=== PATIENT | male | born 1930 | race Hispanic/Latino ===

== ENCOUNTER 2018-08-05 15:58 | Inpatient (IN) | payer MEDICARE ==
[~2018-08-05] VITALS: Ht 162.6 cm; Wt 73.2 kg
[~2018-08-05 15:58] MED LIST: ASPIR-LOW81 MG PO; CENTRUM SILVER1 EAC3 PO; GABAPENTIN400 MG PO; GLIPIZIDE5 MG PO; IRON TAB PO; METOPROLOL TART25 MG PO; PANTOPRAZOLE SO40 MG PO; PLAVIX75 MG PO; SIMETHICONE80 MG PO; SIMVASTATIN40 MG PO; ZESTRIL20 MG PO
[2018-08-05 17:40] LABS: BASOPHILS % 0.4 % (0.0-1.0); EOSINOPHILS % 0.4 % (0.0-6.0); HEMATOCRIT 30.5 % (38.2-49.6); HEMOGLOBIN 9.9 g/dL (14.0-18.0); LYMPHOCYTES # (AUTO) 1.1 (1.0-3.2); LYMPHOCYTES % 15.7 % (18.0-39.1); MEAN CORPUSCULAR HEMOGLOBIN 27.3 pg (28-32); MEAN CORPUSCULAR HGB CONC 32.5 g/dL (31-35); MONOCYTES # (AUTO) 0.4 (0.2-0.8); MONOCYTES % 5.8 % (4.4-11.3); NEUTROPHILS # (AUTO) 5.2 (2.1-6.9); NEUTROPHILS % 77.3 % (38.7-80.0); PLATELET COUNT 306 x10e3/uL (140-360); RED BLOOD COUNT 3.63 x10e6/uL (4.3-5.7); RED CELL DISTRIBUTION WIDTH 15.3 % (11.7-14.4)
[2018-08-05 18:01] LABS: ALBUMIN 3.5 g/dL (3.5-5.0); ALBUMIN/GLOBULIN RATIO 0.9 (0.8-2.0); ANION GAP 17.7 mmol/L (8-16); CALCIUM 9.2 mg/dL (8.4-10.2); CREATININE, SERUM 1.38 mg/dL (0.72-1.25); POTASSIUM 4.7 mmol/L (3.5-5.1)
[2018-08-05 19:16] LABS: INR 0.94; PROTHROMBIN TIME 13.4 seconds (11.9-14.5)
[2018-08-05 19:17] LABS: PARTIAL THROMBOPLASTIN TIME 38.2 seconds (23.8-35.5)
[2018-08-05] MEDS ORDERED: DIATRIZOATE MEGL/DIATRIZOA SOD 30 ML BTL PO ONE (19:30)
--- NOTE | 2018-08-05 19:50 | Diagnostic Imaging Report ---
EXAMINATION: CHEST SINGLE (PORTABLE) INDICATION: ^ERMD ORDER ^[id number] ^1840 ^Y COMPARISON: None FINDINGS: AP view TUBES and LINES: None. LUNGS: Lungs are well inflated. Lungs are clear. There is no evidence of pneumonia or pulmonary edema. PLEURA: No pleural effusion or pneumothorax. HEART AND MEDIASTINUM: The cardiomediastinal silhouette is unremarkable. Median sternotomy wires. BONES AND SOFT TISSUES: No acute osseous lesion. Soft tissues are unremarkable. UPPER ABDOMEN: No free air under the diaphragm. IMPRESSION: No acute thoracic abnormality. Signed by: Dr. David Otero MD on 08/05/2018 7:47 PM
[2018-08-05] MEDS ORDERED: SODIUM CHLORIDE 0.9% 1000ML 1,000 ML IV SCH ×2 (20:30→22:38)
--- NOTE | 2018-08-05 21:59 | Diagnostic Imaging Report ---
EXAM: CT Abdomen and Pelvis WITH contrast INDICATION: Abdominal pain. Weakness COMPARISON: None. TECHNIQUE: Abdomen and pelvis were scanned utilizing a multidetector helical scanner from the lung base to the pubic symphysis after administration of IV contrast. Coronal and sagittal reformations were obtained. Routine protocol was performed. Scan was performed when during portal venous phase. IV CONTRAST: 100 mL of Isovue-370 ORAL CONTRAST: Gastroview COMPLICATIONS: None RADIATION DOSE: Total DLP: 265.9 mGy*cm Estimated effective dose: (DLP x 0.015 x size factor) mSv Dose modulation, iterative reconstruction, and/or weight based adjustment of the mA/kV was utilized to reduce the radiation dose to as low as reasonably achievable. FINDINGS: LINES and TUBES: None. LOWER THORAX: Partially visualized aortic valve prosthesis. Right lower lobe 3 mm calcified granuloma. HEPATOBILIARY: No focal intrahepatic lesions. Subcapsular fluid attenuating 0.9 x 2.1 cm lesion along segment (sagittal image 45) which indents the liver parenchyma. No biliary ductal dilation. GALLBLADDER: There are stones in the gallbladder. No wall thickening. SPLEEN: No splenomegaly. Punctate calcified granuloma. PANCREAS: No ductal dilatation. 0.4 cm cystic lesion in the pancreatic body (coronal image 39). ADRENALS: No adrenal nodules KIDNEYS/URETERS: Kidneys enhance symmetrically. No hydronephrosis. No cystic or solid mass lesions. No stones. GI TRACT: Multiple dilated loops of distal small bowel with masslike area of heterogeneity at the ileocecal valve) axial image 48) measuring 4.2 x 4.3 cm. The proximal small bowel loops of the jejunum and duodenum are relatively collapsed. The mass also appears to involve the base of the appendix which appears fluid filled and distended measuring up to 2.7 cm in diameter (coronal image 37). PELVIC ORGANS/BLADDER: Unremarkable. LYMPH NODES: Scattered nonspecific retroperitoneal and pelvic subcentimeter nodes. VESSELS: Unremarkable. PERITONEUM / RETROPERITONEUM: Diffuse omental caking (for example on series 2 image 35) measuring approximately 3 cm in anterior posterior dimension. Mild ascites. BONES: Median sternotomy wires. Severe degenerative changes of the lumbar spine. SOFT TISSUES: Unremarkable. IMPRESSION: Mass involving the cecum extending to the ileocecal valve and base of the appendix causing mild distal small bowel obstruction and distension of the appendix. Diffuse omental caking and mild likely malignant ascites. Subcapsular collection indenting the right hepatic lobe may represent a mucinous implant. Signed by: DR. Mitch Douglas MD on 08/05/2018 9:56 PM
[2018-08-05] MEDS ORDERED: IOPAMIDOL 370 MG/ML 200 ML INFUS..BTL INJ ONE (22:00)
[2018-08-05] MEDS ORDERED: SODIUM CHLORIDE 0.9% 50ML 50 ML ONE (22:00)
[2018-08-05] MEDS ORDERED: MORPHINE SULFATE 2 MG/ML SYR IV PRN (22:45)
[2018-08-05] MEDS ORDERED: DEXTROSE 50% SYRINGE 50 ML IV PRN (22:45)
--- OUTSIDE RECORDS SUMMARY | 2018-08-05 23:41 | XMS REPORT ---
Author Author [facility] Address Unknown Phone Unavailable Care Team Providers Care Dry Box Operator Name Role Phone Belkys MARCOS Unavailable Unavailable Problems This patient has no known problems. Allergies, Adverse Reactions, Alerts This patient has no known allergies or adverse reactions. Medications This patient has no known medications. Results Test Description Test Time Test Comments Text Results Atomic Results Result Comments CT ABDOMEN/PELVIS W 2018-08-05 21:38:00 [place] [address] Patient Name: YESENIA ADHIKARI MR #: [id number] : 1930 Age/Sex: 88/M Req #: [id number] Adm Physician: Ordered by: ESPERANZA PALMA NP Report #: [id number] Location: ER Room/Bed: Procedure: [id number] CT/CT ABDOMEN/PELVIS W Exam Date: 08/05/18 Exam Time: 2117 REPORT STATUS: Signed EXAM: CT Abdomen and Pelvis WITH contrast INDICATI ON: Abdominal pain. Weakness COMPARISON: None. TECHNIQUE: Abdomen and pelvis were scanned utilizing a multidetector helical scanner from the lung base to the pubic symphysis after administration of IV contrast. Coronal and sagittal reformations were obtained. Routine protocol was performed. Scan was performed when during portal venous phase. IV CONTRAST: 100 mL of Isovue-370 ORAL CONTRAST: Gastroview COMPLICATIONS: None RADIATION DOSE: Total DLP: 265.9 mGy*cm Estimated effective dose: (DLP x 0.015 x size factor) mSv Dose modulation, iterative reconstruction, and/or weight based adjustment of the mA/kV was utilized to reduce the radiation dose to as low as reasonably achievable. FINDINGS: LINES and TUBES: None. LOWER THORAX: Partially visualized aortic valve prosthesis. Right lower lobe 3 mm calcified granuloma. HEPATOBILIARY: No focal intrahepatic lesions. Subcapsular fluid attenuating 0.9 x 2.1 cm lesion along segment (sagittal image 45) which indents the liver parenchyma. No biliary ductal dilation. GALLBLADDER: There are stones in the gallbladder. No wall thickening. SPLEEN: No splenomegaly. Punctate calcified granuloma. PANCREAS: No ductal dilatation. 0.4 cm cystic lesion in the pancreatic body (coronal image 39). ADRENALS: No adrenal nodules KIDNEYS/URETERS: Kidneys enhance symmetrically. No hydronephrosis. No cystic or solid mass lesions. No stones. GI TRACT: Multiple dilated loops of distal small bowel with masslike area of heterogeneity at the ileocecal valve) axial image 48) measuring 4.2 x 4.3 cm. The proximal small bowel loops of the jejunum and duodenum are relatively collapsed. The mass also appears to involve the base of the appendix which appears fluid filled and distended measuring up to 2.7 cm in diameter (coronal image 37). PELVIC ORGANS/BLADDER: Unremarkable. LYMPH NODES: Scattered nonspecific retroperitoneal and pelvic subcentimeter nodes. VESSELS: Unremarkable. PERITONEUM / RETROPERITONEUM: Diffuse omental caking (for example on series 2 image 35) measuring approximately 3 cm in anterior posterior dimension. Mild ascites. BONES: Median sternotomy wires. Severe degenerative changes of the lumbar spine. SOFT TISSUES: Unremarkable. IMPRESSION: Mass involving the cecum extending to the ileocecal valve and base of the appendix causing mild distal small bowel obstruction and distension of the appendix. Diffuse omental caking and mild likely malignant ascites. Subcapsular collection indenting the right hepatic lobe may represent a mucinous implant. Signed by: DR. Mitch Still MD on 08/05/2018 9:56 PM Dictated By: MITCH STILL MD 55 Transcribed By: JORGE on 08/05/182155 COPY TO: ESPERANZA PALMA NP CHEST SINGLE (PORTABLE) 2018-08-05 19:46:00 [facility] [address] [place] [address] Patient Name: YESENIA ADHIKARI MR #: [id number] : 1930 Age/Sex: 88/M Req #: [id number] Adm Physician: Ordered by: ESPERANZA PALMA NP Report #: [id number] Location: ER Room/Bed: Procedure: [id number] DX/CHEST SINGLE (PORTABLE) Exam Date: 08/05/18 Exam Time: 0 REPORT STATUS: Signed EXAMINATION: CHEST SINGLE (PORTABLE) INDIC ATION: ERMD ORDER [id number] 1840 Y COMPARISON: None FINDINGS: AP view TUBES and LINES: None. LUNGS: Lungs are well inflated. Lungs are clear. There is no evidence of pneumonia or pulmonary edema. PLEURA: No pleural effusion or pneumothorax. HEART AND MEDIASTINUM: The cardiomediastinal silhouette is unremarkable. Median sternotomy wires. BONES AND SOFT TISSUES: No acute osseous lesion. Soft tissues are unremarkable. UPPER ABDOMEN: No free air under the diaphragm. IMPRESSION: No acute thoracic abnormality. Signed by: Dr. David Dong MD on 08/05/2018 7:47 PM Dictated By: DAVID DONG MD 46 Transcribed By: JORGE on 08/05/181946 COPY TO: ESPERANZA PALMA NP
[2018-08-06] VITALS (9 sets, daily range): BP systolic 102–162; BP diastolic 53–77
[2018-08-06] MEDS: PIPER-TAZ 3.375 GM / NS 50ML IV SCH ×4 (00:04→22:00)
--- NOTE | 2018-08-06 00:40 | NUR ---
Pt received from ER via stretcher alert and oriented x3. Pt denies any distress/discomfort/pain. NG tube to left nare, clamped. Awaiting on Xray for confirmation of NG tube placement. Bowel sound hyperactive in all quadrants. Pt requiring moderate assistance to ambulate. Assisted pt to use the restroom. Pt with hesitation but able to void at this time with encouragement. Reminded pt to be NPO at this time. Pt verbalizes understanding. Family at bedside. Call light within reach. Will continue to monitor.
--- NOTE | 2018-08-06 02:00 | NUR ---
Placement of NG tube can not be verified with xray. 2 Nurses unable to verify placement with aspiration of gastric content nor auscultation of air injection. Pt with occasional coughs. Removed NG tube at this time.
--- NOTE | 2018-08-06 02:03 | Diagnostic Imaging Report ---
EXAM: ABDOMEN-1VIEW (KUB), DATE: 08/06/2018 11:43 PM INDICATION: NG tube placement COMPARISON: CT abdomen and pelvis 08/05/2017 FINDINGS: Evaluation limited by motion. LINES/TUBES: No definitive NG tube is visualized. Tube is visualized projecting over the left lower thorax, but of uncertain etiology. BOWEL PATTERN: Mildly dilated loops of small bowel in keeping with distal small bowel obstruction from the cecal mass. SOFT TISSUES: No abnormal calcifications. No mass effect. LUNG BASES: Grossly clear. BONES: No acute findings. IMPRESSION: No definitive NG tube is visualized. A tube is visualized projecting over the left lower thorax of uncertain etiology. Recommend clinical correlation and chest x-ray. Signed by: DR. Mitch Douglas MD on 08/06/2018 2:00 AM
--- NOTE | 2018-08-06 03:00 | NUR ---
Multiple attempts at placing the NG tube unsuccessful by multiple RNs including this nurse and ICU nurse. Pt states he "does not want it".
--- NOTE | 2018-08-06 03:20 | NUR ---
Paged and spoke with Dr. Montoya regarding multiple unsuccessful attempts to place a ng tube on the patient. Leave the NG tube out per Dr. Montoya. Pt denies any nausea/vomiting. NO distress noted.
--- NOTE | 2018-08-06 05:20 | NUR ---
Urine sample sent to lab
[2018-08-06] MEDS ORDERED: LEVOTHYROXINE50 MCG PO (06:18)
[2018-08-06] MEDS ORDERED: ATORVASTATIN CA20 MG PO (06:18)
[2018-08-06] MEDS ORDERED: FLOMAX0.4 MG PO (06:18)
[2018-08-06 06:40] LABS: BASOPHILS % 0.4 % (0.0-1.0); EOSINOPHILS % 0.3 % (0.0-6.0); HEMATOCRIT 25.3 % (38.2-49.6); HEMOGLOBIN 8.2 g/dL (14.0-18.0); LYMPHOCYTES # (AUTO) 0.7 (1.0-3.2); LYMPHOCYTES % 8.9 % (18.0-39.1); MEAN CORPUSCULAR HEMOGLOBIN 27.3 pg (28-32); MEAN CORPUSCULAR HGB CONC 32.4 g/dL (31-35); MEAN CORPUSCULAR VOLUME 84.3 fL (81-99); MONOCYTES # (AUTO) 0.4 (0.2-0.8); MONOCYTES % 5.6 % (4.4-11.3); NEUTROPHILS # (AUTO) 6.6 (2.1-6.9); NEUTROPHILS % 84.3 % (38.7-80.0); PLATELET COUNT 236 x10e3/uL (140-360); RED CELL DISTRIBUTION WIDTH 15.4 % (11.7-14.4)
[2018-08-06 07:06] LABS: ALBUMIN 2.9 g/dL (3.5-5.0); ANION GAP 17.9 mmol/L (8-16); CALCIUM 8.3 mg/dL (8.4-10.2); CREATININE, SERUM 1.21 mg/dL (0.72-1.25); POTASSIUM 3.9 mmol/L (3.5-5.1)
[2018-08-06 07:17] LABS: COLOR,URINE YELLOW (YELLOW)
[2018-08-06 07:18] LABS: CLARITY,URINE CLEAR (CLEAR); LEUKOCYTE ESTERASE ,URINE NEGATIVE (NEGATIVE); NITRITE,URINE NEGATIVE (NEGATIVE); PROTEIN,URINE DIPSTICK NEGATIVE (NEGATIVE)
[2018-08-06 07:19] LABS: BILIRUBIN,URINE NEGATIVE (NEGATIVE); KETONES,URINE 1+ (NEGATIVE); URINE UROBILINOGEN 0.2 mg/dL (0.2 - 1)
[2018-08-06 07:23] LABS: BACTERIA,URINE RARE /HPF; WBC,URINE (MAN) 0-5 /HPF (0-5)
[2018-08-06 07:24] LABS: EPITHELIAL CELLS,URINE MODERATE /LPF; TRANSITIONAL EPI CELLS,URINE FEW
[2018-08-06] MEDS ORDERED: INSULIN REGULAR, HUMAN 100 UNIT/1 ML 3ML VIAL SQ SCH (07:30)
[2018-08-06] MEDS: LACTATED RINGER'S 1,000 ML IV SCH (12:57)
--- NOTE | 2018-08-06 13:40 | NUR ---
Nutrition Intervention Note RD Recommendation(s) for Physician: Recommend TPN if unable to initiate a Po diet within 5 days Plan of Care: RD following, monitoring for tolerance and adequacy Nutrition reason for involvement: Nutrition Risk Trigger - MST RD Assessment Initial encounter with patient. Pt with C/O of a terrible appetite and a 12 pound wt loss since last weighed on 08/01/2018. Pt denies any N, V or D. Pt has not had a BM recently. Pt refused NGT placement Principal Problems/Diagnoses: Bowel obstruction Colonic mass PMH: Metastatic cancer IVF: NS@100ml/hr GI: No BM Skin:intact Labs: (08/06/2018) Lab results review Meds: (08/06/2018) MAR reviewed Malnutrition Evaluation (08/06/2018) The patient meets criteria for MODERATE protein-calorie malnutrition. Energy intake: <75% of estimated energy requirements for >7 days Weight loss: >2% in 1week (Acute) Fat loss: unable to evaluate Muscle loss: unable to evaluate Diet Education Needs Assessment: Diet education indicated, but patient not appropriate for education at this time. Ht:65 Wt:138lbs BMI:23kg/m2 IBW:lbs Estimated Nutritional Needs: 1568 - 1881calories/day 25-30 kcal/kg/BW 62-75g protein/day 1-1.2g pro/kg/ BW Nutrition Prescription (Diet Order):NPO Food Allergies: no known food allergies Diet Adequacy: Not meeting calorie needs, Not meeting protein needs Tolerance: Pt is NPO Nutrition Care Level: moderate Nutrition Diagnosis:Altered GI function, related to colonic mass as evidenced by bowel obstruction Goal:Patient will meet 75-100% of estimated needs by follow up Progress: Not Progressing Interventions: Recommend nutrition support if unable to initiate Po intake within 5 days. Monitoring/Evaluation: I/os, Wt, lab results Pietro Garcia RD, LD, CNSC
--- NOTE | 2018-08-06 16:24 | Consultation ---
DATE OF CONSULTATION: August 06, 2018 CHIEF COMPLAINT: Nausea and pain. HISTORY OF PRESENT ILLNESS: The patient is an 88-year-old male with chief complaint of progressive abdominal pain and nausea with intolerance of oral intake since . The patient complained of constipation with very loose infrequent stool without blood. He has lost a lot of weight. The patient denies vomiting. PAST MEDICAL HISTORY: Positive for coronary artery disease, hyperlipidemia, diabetes, hypertension. 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 ALLERGIES: THE PATIENT HAS NO DRUGS ALLERGY. SOCIAL HISTORY: He denies smoking or alcohol abuse. REVIEW OF SYSTEMS: No chest pain or shortness of breath. PHYSICAL EXAMINATION VITAL SIGNS: Stable. He is afebrile. GENERAL: He is awake, alert, in mild discomfort. HEENT: Sclerae nonicteric. NECK: Supple. LUNGS: Clear. HEART: Regular rate and rhythm. ABDOMEN: Soft. There is some fullness and guarding in the right lower quadrant without rebound. EXTREMITIES: Without cyanosis or edema. LABORATORY DATA: White cell count 7, hemoglobin of 8, platelet count of 236. Creatinine of 1.2. Liver function test within normal limits. CT of the abdomen showed cecal mass with mild bowel obstruction. Omental kicking is also noted with ascites. ASSESSMENT: Mass in the cecum with bowel obstruction, suspicious for malignant etiology. PLAN: Patient would need exploratory laparotomy and probable right colectomy planned for Wednesday. Job#: [id number] YASMIN
[2018-08-06] MEDS: INSULIN LISPRO 100 UNIT/1 ML 3ML VIAL SQ SCH ×2 (16:30→21:00)
--- NOTE | 2018-08-06 21:30 | NUR ---
Assisted pt to the restroom. Pt with slight hesitancy but able to void with encouragement. Assisted pt back to back. Call light within reach. Will continue to monitor.
[2018-08-07] VITALS (7 sets, daily range): BP systolic 98–121; BP diastolic 42–61
[2018-08-07] MEDS: LACTATED RINGER'S 1,000 ML IV SCH ×3 (00:57→17:45)
[2018-08-07] MEDS: PIPER-TAZ 3.375 GM / NS 50ML IV SCH (06:05)
[2018-08-07] MEDS: INSULIN LISPRO 100 UNIT/1 ML 3ML VIAL SQ SCH ×4 (07:30→21:00)
--- NOTE | 2018-08-07 09:30 | NUR ---
assessment complete no distress noted, updated on poc voiced understanding, denies pain at this time, ivf infusing to l ac 20g no ss of infiltration noted, no other co voiced call light in reach will continue to monitor
[2018-08-07] MEDS: LEVOFLOXACIN 500MG/D5W 100ML 100 ML IV SCH (12:16)
[2018-08-07] MEDS: METRONIDAZOLE 500MG/NS 100ML 100 ML IV SCH ×2 (13:56→22:08)
--- NOTE | 2018-08-07 15:29 | Consultation ---
DATE OF CONSULTATION: August 07, 2018 REFERRING PHYSICIAN: Dr. Yair Riddle. REASON FOR CONSULTATION: Perioperative evaluation for cardiovascular issues. HISTORY OF PRESENT ILLNESS: Mr. 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 He denies any exertional symptoms proceeding in his hospitalization including absence of exertional chest discomfort or dyspnea. He denies any evidence of syncope or lightheadedness. His think he is in normal sinus rhythm with nonspecific repolarization abnormalities. His echocardiogram reveals preserved biventricular systolic function. Normal functioning bioprosthetic aortic valve and a normal regional wall motion. REVIEW OF SYSTEMS: A 12-system review negative except for as noted above and abdominal discomfort . PAST MEDICAL HISTORY: As per HPI. Significant for CAD, aortic valve disorder status post replacement and dyslipidemia. FAMILY HISTORY: Noncontributory. SOCIAL HISTORY: No active smoking, alcohol or drug. PHYSICAL EXAMINATION VITAL SIGNS: Temperature 97.1, heart rate in the 50s to 60s, blood pressure 105/55, respiratory rate 18, and O2 sat 99%. BMI is 23.4. GENERAL: In no acute distress. Alert, active. NECK: No JVD. CHEST: Preferred carotid sounds from heart. CARDIOVASCULAR: Regular rate and rhythm. Normal S1 and S2. No S3 or S4. Systolic ejection murmurs 2/6 radiating to carotids, best heard in the right upper sternal border. No S3 and no S4. ABDOMEN: Distended. No rebound or guarding. EXTREMITIES: No edema. Warm distal extremities. MEDICATIONS: Cardiovascular medication reviewed preliminarily on Zofran, p.r.n. morphine, p.r.n. insulin, and IV metoprolol 2.5 mg every 12 hours with holding parameters systolic blood pressure less than 105 or heart rate is less than 60. LAB WORK: Reviewed. Sodium 131, potassium 3.9, chloride 102, bicarbonate 15, BUN 26, creatinine 1.2, glucose 97. White blood cells 7.8, hemoglobin 8.2, platelets 236. AST , alk phos 47, INR 0.9. ASSESSMENT: 1. Bowel obstruction in the setting of suspected cancer, we will plan for urgent lab tomorrow. 2. Coronary artery disease status post remote stent through RCA proximally in 2007, at the circumflex in 2011. 3. Aortic stents with aortic valve replacement with tissue, put in 1 mm valve in 2012 with normal function on echo. 4. Preserved left ventricular systolic function on echocardiogram. RECOMMENDATIONS 1. Moderate risk for a gross cardiovascular outcomes with noncardiac surgery given her history of procedure. Continue perioperative beta-blockers there as possible with holding parameters for heart rate and blood pressure. 2. Once able to tolerate p.o., resume aspirin. 3. We will follow closely with you. Job#: [id number] SUDARSHAN
--- NOTE | 2018-08-07 21:33 | NUR ---
pt to receive heparin 5000 units SQ, paged Dr. Montoya to verify order, ok to give
[2018-08-07] MEDS: METOPROLOL TARTRATE INJ 1 MG/ML VIAL IV SCH (22:06)
[2018-08-07] MEDS: HEPARIN SOD (PORCINE) 5,000 UNIT/ML VIAL SC SCH (22:07)
[2018-08-08] VITALS (23 sets, daily range): BP systolic 91–139; BP diastolic 47–71
[2018-08-08] MEDS: LACTATED RINGER'S 1,000 ML IV SCH ×3 (05:47→23:45)
[2018-08-08] MEDS: METRONIDAZOLE 500MG/NS 100ML 100 ML IV SCH ×3 (05:48→21:40)
[2018-08-08 06:13] LABS: BASOPHILS % 0.3 % (0.0-1.0); EOSINOPHILS # (AUTO) 0.1 (0.0-0.4); EOSINOPHILS % 1.6 % (0.0-6.0); HEMATOCRIT 22.7 % (38.2-49.6); HEMOGLOBIN 7.3 g/dL (14.0-18.0); LYMPHOCYTES # (AUTO) 0.9 (1.0-3.2); LYMPHOCYTES % 15.1 % (18.0-39.1); MEAN CORPUSCULAR HEMOGLOBIN 27.3 pg (28-32); MEAN CORPUSCULAR HGB CONC 32.2 g/dL (31-35); MONOCYTES # (AUTO) 0.5 (0.2-0.8); NEUTROPHILS # (AUTO) 4.6 (2.1-6.9); NEUTROPHILS % 74.7 % (38.7-80.0); PLATELET COUNT 202 x10e3/uL (140-360); RED BLOOD COUNT 2.67 x10e6/uL (4.3-5.7); RED CELL DISTRIBUTION WIDTH 15.9 % (11.7-14.4)
--- NOTE | 2018-08-08 06:20 | NUR ---
ASSESSMENT: Spiritual distress Pt requested printing press operator visit/prayer. Pt's daughter at bedside. Pt states his a few years ago and his daughters help. Pt concerned about help after returning home. Intervention: Provided empathic listening. Facilitated illness review. Facilitated identification of resources. Provided prayer and information on how to reach printing press operator, if needed. Outcome: Pt and daughter expressed appreciation for visit. RIYA ELLIS Structural Steel Shop Supervisor Spiritual Care Department O: [phone] Pager: [phone] ([phone] + number calling from)
[2018-08-08 06:37] LABS: % IRON SATURATION 9 % (15-50); ANION GAP 14.8 mmol/L (8-16); BLOOD UREA NITROGEN 11 mg/dL (7-26); BUN/CREATININE RATIO 11 (6-25); CALCIUM 8.2 mg/dL (8.4-10.2); CARBON DIOXIDE 18 mmol/L (22-29); CHLORIDE 106 mmol/L (98-107); CREATININE, SERUM 0.97 mg/dL (0.72-1.25); EST GLOMERULAR FILTRATION RATE > 60 ML/MIN (60-); GLUCOSE 73 mg/dL (74-118); IRON 19 ug/dL (65-175); POTASSIUM 3.8 mmol/L (3.5-5.1); SODIUM 135 mmol/L (136-145); TOTAL IRON BINDING CAPACITY 209 ug/dL (261-478); TRANSFERRIN 149 mg/dL (174-364)
--- NOTE | 2018-08-08 07:15 | NUR ---
Patient left for procedure to OR. No signs of distress noted.
[2018-08-08] MEDS ORDERED: HEPARIN SOD/SOD CHLORIDE 1,000 ML ONE (07:18)
[2018-08-08] MEDS ORDERED: BUPIVACAINE 0.5%/EPI 30 ML SDV INJ ONE (07:27)
[2018-08-08] MEDS: INSULIN LISPRO 100 UNIT/1 ML 3ML VIAL SQ SCH ×4 (07:30→21:00)
--- NOTE | 2018-08-08 07:43 | NUR ---
Received patient. Walking rounds complete. Patient resting in bed, no signs of distress. Bed in lowest position, side rails up x2, wheels locked, call light in reach.
[2018-08-08] MEDS: METOPROLOL TARTRATE INJ 1 MG/ML VIAL IV SCH ×2 (08:26→21:40)
[2018-08-08] MEDS: HEPARIN SOD (PORCINE) 5,000 UNIT/ML VIAL SC SCH (08:27)
[2018-08-08] MEDS ORDERED: FENTANYL CITRATE/PF 100MCG/2 ML INJ ONE ×2 (10:28→12:14)
--- NOTE | 2018-08-08 11:06 | NUR ---
Report given to Divya in ICU. Patient transferred from surgery.
[2018-08-08] MEDS: MORPHINE SULFATE INJ 4 MG/ML INJ IV PRN (12:02)
[2018-08-08] MEDS: LEVOFLOXACIN 500MG/D5W 100ML 100 ML IV SCH (12:03)
[2018-08-08] MEDS: ONDANSETRON HCL INJ 2 MG/ML VIAL IV PRN (12:03)
--- NOTE | 2018-08-08 13:36 | Operative Report ---
DATE OF PROCEDURE: August 08, 2018 PREOPERATIVE DIAGNOSIS: Obstructing right colonic neoplasm. POSTOPERATIVE DIAGNOSIS: Obstructing right colonic neoplasm and carcinomatosis. OPERATIVE PROCEDURES 1. Diagnostic laparoscopy. 2. Open diverting loop ileostomy. FNP: None. ANESTHESIA: General endotracheal. INDICATIONS: An 88-year-old male with a 3-month history of progressive abdominal distention, nausea and intermittent vomiting with CT scan showing an obstructing lesion in the cecal area with intestinal obstruction. Patient had consented for diagnostic, possible open, right colectomy with all attendant risks discussed. PROCEDURE FINDINGS: Obstructing lesion in the right colon at the level of the cecum and the mid-transverse colon with thickening of the omentum and intraperitoneal implants on the abdominal wall as well as on the mesentery of the small bowel and large bowel. Malignant ascites, 500 mL. DESCRIPTION OF PROCEDURE: The patient was brought to the OR intubated. Abdomen was prepped with alcohol and draped in a sterile fashion. A supraumbilical incision was made and a 5-mm port inserted. Insufflation then began. Under direct vision, other ports were placed in the mid-epigastric. Laparoscopic examination revealed evidence of carcinomatosis with tumor implants in the lining of the peritoneal cavity as well as the surface of the bowel and mesentery. There was evidence of obstruction at the cecum level with dilation of the ileum and the appendix. Omental thickening of the omentum was noted. At this point, a decision was made to open the abdomen from the xiphoid down to the umbilicus, going through the linea alba, entering the peritoneal cavity. Malignant peritoneal fluid was suctioned out, 500 mL removed. Due to extensive tumor load and obstruction far distal in the colon, the decision was made to perform diverting loop ileostomy. A right paraumbilical ostomy site was chosen through the mid point of the rectus muscle. A circular piece of skin and subcutaneous tissue were removed in that area, and the fascia was opened in a cruciate fashion. The rectus muscle was split along its fibers, and the posterior fascia and peritoneum were opened transversely. A loop of ileum approximately 35 cm from the obstructing tumor was then exteriorized with orientation to ensure normal egress of intestinal content. The loop was exteriorized without any tension. We then closed the peritoneal cavity, approximating the fascia with running #0 PDS and #0 Vicryl. Skin was closed with sarah. We then proceeded to mature the ileostomy by everting the bowel wall to the skin with interrupted 3-0 Vicryl stitch with the enterotomy made approximately two-thirds of the way up the inferior aspect of the ostomy to ensure a well-constructed ileostomy. Appliance was inserted. Patient was then extubated and transported in guarded condition to the recovery room. Estimated blood loss was 20 mL. Job#: [id number]
--- NOTE | 2018-08-08 13:58 | Diagnostic Imaging Report ---
Examination: Single AP view of the chest. COMPARISON: Portable chest 08/05/2018 INDICATION: Central line placement IMPRESSION: 1. Lines and Tubes: Interval placement of left-sided subclavian approach central line, with distal tip projecting in the proximal SVC. 2. Hypoinflated lungs. Minimal bibasilar atelectasis. Focal crescentic lucency in the lateral left apex may represent a small pneumothorax. 3. Cardiomediastinal silhouette is normal. Central pulmonary venous crowding due to low lung volumes. 4. No acute bony abnormalities. 5. Findings given to Shala Evans Aug 08, 2018 at 1355 h Signed by: Dr. Stephen Lizarraga M.D. on 08/08/2018 1:54 PM
[2018-08-08] MEDS: IRON SUCROSE 100 MG in SODIUM CHLORIDE 0.9% 100 ML 100 ML IV SCH (14:48)
[2018-08-08] MEDS ORDERED: HYDROMORPHONE 1MG/1ML INJ IV PRN (15:00)
[2018-08-08] MEDS ORDERED: HYDROMORPHONE 2MG/ML 2 MG/ML ML ONE (15:05)
[2018-08-08] MEDS: HYDROMORPHONE 2MG/ML 2 MG/ML ML IV PRN ×2 (15:15→21:10)
[2018-08-08] MEDS: METOCLOPRAMIDE HCL 10 MG/2ML VIAL IV PRN (15:15)
[2018-08-08] MEDS: FAMOTIDINE 20 MG/2 ML VIAL IV SCH (17:42)
[2018-08-08] MEDS ORDERED: ROCURONIUM BROMIDE 10 MG/ML 5ML VIAL ONE (17:47)
[2018-08-08] MEDS ORDERED: CEFOXITIN SOD 1 GM VIAL ONE (17:47)
[2018-08-08] MEDS ORDERED: GLYCOPYRROLATE INJ 1MG/ 5 ML SYR ONE (17:47)
[2018-08-08] MEDS ORDERED: LIDOCAINE HCL 2% LOCAL INJ 5 ML SDV VIAL INJ ONE (17:47)
[2018-08-08] MEDS ORDERED: ONDANSETRON HCL INJ 2 MG/ML VIAL ONE (17:47)
[2018-08-08] MEDS ORDERED: DEXAMETHASONE SOD PHOS INJ 4 MG/ML VIAL ONE (17:47)
[2018-08-08] MEDS ORDERED: NEOSTIGMINE 5 MG/5ML SYR ONE (17:47)
[2018-08-08] MEDS ORDERED: HYDRALAZINE HCL 20 MG/ML VIAL ONE (17:47)
[2018-08-08] MEDS ORDERED: ESMOLOL HCL 100MG/10ML 10 MG/ML VIAL ONE (17:47)
[2018-08-08] MEDS ORDERED: SEVOFLURANE INHAL SOLN 250 ML PEN BTL ONE (17:47)
--- NOTE | 2018-08-08 20:26 | Progress Note ---
DATE: August 08, 2018 CARDIOLOGY PROGRESS NOTE SUBJECTIVE: Patient is not in room, undergoing surgery today. Vital signs and labs as well as medications reviewed. Will attempt to visit with patient later today. Please call with any issues. Job#: [id number]
[2018-08-09] VITALS (31 sets, daily range): BP systolic 92–139; BP diastolic 40–95
[2018-08-09] MEDS: LACTATED RINGER'S 1,000 ML IV SCH ×2 (05:10→19:00)
[2018-08-09] MEDS: METRONIDAZOLE 500MG/NS 100ML 100 ML IV SCH ×3 (05:10→23:30)
[2018-08-09] MEDS: HYDROMORPHONE 2MG/ML 2 MG/ML ML IV PRN (05:30)
[2018-08-09 05:34] LABS: BASOPHILS % 0.3 % (0.0-1.0); HEMATOCRIT 36.6 % (38.2-49.6); LYMPHOCYTES # (AUTO) 0.6 (1.0-3.2); LYMPHOCYTES % 4.6 % (18.0-39.1); MEAN CORPUSCULAR HEMOGLOBIN 28.1 pg (28-32); MEAN CORPUSCULAR HGB CONC 33.6 g/dL (31-35); MEAN CORPUSCULAR VOLUME 83.8 fL (81-99); MONOCYTES # (AUTO) 0.5 (0.2-0.8); MONOCYTES % 4.2 % (4.4-11.3); NEUTROPHILS # (AUTO) 11.4 (2.1-6.9); NEUTROPHILS % 90.4 % (38.7-80.0); PLATELET COUNT 254 x10e3/uL (140-360); RED BLOOD COUNT 4.37 x10e6/uL (4.3-5.7); RED CELL DISTRIBUTION WIDTH 15.7 % (11.7-14.4)
[2018-08-09 05:36] LABS: HEMOGLOBIN 12.3 g/dL (14.0-18.0)
[2018-08-09 05:57] LABS: ANION GAP 23.3 mmol/L (8-16); BLOOD UREA NITROGEN 10 mg/dL (7-26); BUN/CREATININE RATIO 9 (6-25); CALCIUM 8.1 mg/dL (8.4-10.2); CHLORIDE 109 mmol/L (98-107); CREATININE, SERUM 1.13 mg/dL (0.72-1.25); EST GLOMERULAR FILTRATION RATE > 60 ML/MIN (60-); GLUCOSE 141 mg/dL (74-118); POTASSIUM 4.3 mmol/L (3.5-5.1); SODIUM 137 mmol/L (136-145)
[2018-08-09 06:00] LABS: CARBON DIOXIDE 9 mmol/L (22-29)
[2018-08-09] MEDS: INSULIN LISPRO 100 UNIT/1 ML 3ML VIAL SQ SCH ×4 (07:30→21:35)
[2018-08-09] MEDS: METOPROLOL TARTRATE INJ 1 MG/ML VIAL IV SCH ×2 (09:00→21:35)
[2018-08-09] MEDS: FAMOTIDINE 20 MG/2 ML VIAL IV SCH ×2 (09:30→16:59)
--- NOTE | 2018-08-09 11:02 | Diagnostic Imaging Report ---
EXAMINATION: CHEST SINGLE (PORTABLE) INDICATION: Follow-up pneumothorax. COMPARISON: Chest radiograph 08/08/2018. FINDINGS: TUBES and LINES: Left-sided central line terminates in the expected location of the left distal brachiocephalic vein. LUNGS: Low lung volumes which decreases sensitivity and specificity for pathology. There is increasing patchy opacity in the right mid and lower lung. Mild patchy left basilar opacity. No evidence of pulmonary edema. PLEURA: Interval resolution of lucency in the left lateral apex. No definite residual pneumothorax. There is a skinfold overlying the left lower lung. HEART AND MEDIASTINUM: The cardiomediastinal silhouette is unchanged. BONES AND SOFT TISSUES: No acute osseous lesion. Soft tissues are unremarkable. UPPER ABDOMEN: No free air under the diaphragm. IMPRESSION: Previously noted left apical lucency is no longer present. No definite pneumothorax. Lower lung volumes compared to the prior study. Increasing opacities in the right mid and lower lung zones, likely atelectasis. Pneumonia is possible in the appropriate clinical context. Signed by: Dr. Cristal Wilson MD on 08/09/2018 10:59 AM
--- NOTE | 2018-08-09 11:04 | Diagnostic Imaging Report ---
EXAM: Abdomen 1 View INDICATION: ^RECENT ILEOSTOMY ^[id number] ^[id number] COMPARISON: 08/06/2018 FINDINGS: Mild gaseous distention of bowel loops, probably postsurgical ileus. Contrast is seen within proximal ascending colon. No definite evidence of pneumoperitoneum. Mild levoscoliosis of lumbar spine with multilevel advanced degenerative changes. Surgical sarah are seen overlying the midline. IMPRESSION: 1. Mild gaseous distention of bowel loops, likely postsurgical ileus. No overt signs of obstruction. Signed by: Dr. David Otero MD on 08/09/2018 11:01 AM
[2018-08-09] MEDS ORDERED: LACTATED RINGER'S 1,000 ML IV ONE (11:30)
[2018-08-09] MEDS: LEVOFLOXACIN 500MG/D5W 100ML 100 ML IV SCH (11:30)
[2018-08-09] MEDS: IPRATROPIUM BROMIDE 0.02% 2.5 ML NEB NEB SCH ×3 (11:30→15:00)
[2018-08-09] MEDS: IRON SUCROSE 100 MG in SODIUM CHLORIDE 0.9% 100 ML 100 ML IV SCH (13:04)
--- NOTE | 2018-08-09 13:52 | NUR ---
PT AND FAMILY SIGNED CHOICE FOR [facility], FILED IN CHART WITH COPY GIVEN TO FAMILY AT BEDSIDE. WAITING ON ORDER FOR DISCHARGE, PT ACCEPTED TO HOSPICE.
--- NOTE | 2018-08-09 14:31 | NUR ---
Nutrition Intervention Note RD Recommendation(s) for Physician: -Advance to GI soft diet as medically appropriate -Consider Ensure Clear w/ meals as requested by pts family -RD is sign off from care -08/09 (comfort care) The patient meets criteria for MODERATE protein-calorie malnutrition. Plan of Care: RD following, monitoring for tolerance and adequacy Nutrition reason for involvement: Follow up, RN consult- no reason stated RD Assessment 08/09 Chart reviewed. Pt was discussed during rounds. Confirmed hospice care. Pt is s/p open ex-lap, colectomy and ileostomy on 08/08. Visited pt in the room. Pt reports feeling well after surgery. No complains of nausea or vomiting. Pt has some missing teeth; will order mechanical soft diet. Pt denies any swallowing difficulty. RD is signed off from care as pt will be on hospice care. Re-consult if status of care changed. 08/06 - Initial encounter with patient. Pt with C/O of a terrible appetite and a 12 pound wt loss since last weighed on 08/01/2018. Pt denies any N, V or D. Pt has not had a BM recently. Pt refused NGT placement Principal Problems/Diagnoses: Bowel obstruction Colonic mass PMH: Metastatic cancer GI: colostomy bag present Skin: intact Labs: (08/09/2018) Glucose 141 H, Ca 8.1 L (08/06/2018) Lab results review Meds: insulin, iron sucrose, IVF, pepcid, lactated ringer, reglan, zofran Malnutrition Evaluation (08/06/2018) The patient meets criteria for MODERATE protein-calorie malnutrition. Energy intake: <75% of estimated energy requirements for >7 days Weight loss: >2% in 1week (Acute) Fat loss: unable to evaluate Muscle loss: unable to evaluate Diet Education Needs Assessment: Diet education not indicated. Ht:65 Wt:138lbs BMI:23kg/m2 IBW: 136lbs Estimated Nutritional Needs: 1568 - 1881calories/day 25-30 kcal/kg/BW 62-75g protein/day 1-1.2g pro/kg/ BW Nutrition Prescription (Diet Order): clear liquid Food Allergies: no known food allergies Diet Adequacy: Not meeting calorie needs, Not meeting protein needs Tolerance: tolerating Nutrition Care Level: low Nutrition Diagnosis: Altered GI function related to colonic mass as evidenced by bowel obstruction. Goal: Patient will meet 75-100% of estimated needs by follow up Progress: Some progress Interventions: Regular diet Monitoring/Evaluation: Total protein, total energy intake, diet, labs, weight change Anna Marie Alarcon MS, RD, LD
[2018-08-09] MEDS ORDERED: IPRATROPIUM BROMIDE 0.02% 2.5 ML NEB NEB SCH (15:00)
[2018-08-09 15:17] LABS: BASOPHILS % 0.2 % (0.0-1.0); HEMOGLOBIN 10.9 g/dL (14.0-18.0); LYMPHOCYTES # (AUTO) 0.5 (1.0-3.2); LYMPHOCYTES % 3.8 % (18.0-39.1); MEAN CORPUSCULAR HEMOGLOBIN 27.9 pg (28-32); MEAN CORPUSCULAR VOLUME 84.6 fL (81-99); MONOCYTES # (AUTO) 0.4 (0.2-0.8); MONOCYTES % 3.1 % (4.4-11.3); NEUTROPHILS # (AUTO) 12.1 (2.1-6.9); NEUTROPHILS % 92.3 % (38.7-80.0); PLATELET COUNT 226 x10e3/uL (140-360)
[2018-08-09 15:33] LABS: ANION GAP 17.1 mmol/L (8-16); CREATININE, SERUM 1.23 mg/dL (0.72-1.25); POTASSIUM 4.1 mmol/L (3.5-5.1)
--- NOTE | 2018-08-09 15:49 | NUR ---
CASE MANAGEMENT INITIAL ASSESSMENT Chronic Disease Epidemiologist to bedside to discuss plan of care with patient/family. CM/SW role and care transitions discussed. Anticipated discharge plan discussed along with duration of care. CM/SW discussed patients right to make decisions in care. CM/SW work hours given. Patient lives:IN HIS OWN HOME WITH GROWN DTR TESSY MCKEON Admit/Transfer: ER POA/Emergency contact: TESSY MCKEON DTR [phone] Current/Previous Home Health: NONE PCP/Follow-up Care: MAYA ALBERTS Current/Previous DME: ALBERTO Other Services: NONE Employment Status: RETIRED Areas of Concerns: ASKING FOR HOSPICE Referral Needs: REFERRED TO [facility] Education Needs: NONE IMM/ATKINSON given and signed (if applicable): IMM 08/09 Goal for discharge:TO DISCHARGE HOME WITH HOSPICE WHEN MEDICALLY STABLE CM/SW left business card at the bedside with contact information. Name and number was also written on the patients whiteboard.
--- NOTE | 2018-08-09 15:55 | NUR ---
CM SPOKE WITH DR DELEON TO NOTIFY HIM THAT [facility] IS READY WHENEVER PT IS DISCHARGED HOME DR DELEON STATES PT NEEDS TO BE MORE STABLE POST OP BEFORE DISCHARGE IMM SIGNED AND ON CHART COPY TO PT A FIB WITH RVR TODAY (RATE 177) WHILE AMBULATING
--- NOTE | 2018-08-09 16:25 | NUR ---
hospice at bedside this morning and ready to admit patient upon discharge home. Hospice company [facility]. pt and family not ready for discharge at this time.
--- NOTE | 2018-08-09 16:26 | NUR ---
patient hr elevated with arrythemias noted. Dr. Moya at bedside. EKG's obtained. per jac Martínez. new orders received. will start amidarone gtt per protocol and instructed not to continue when 24hr's completed and do not start pt on po amiodarone. bp stable. pt has no complaints. hr 90s to 130's this morning. pt ambulated in ICU dexter with max hr 170's non- sustained. pt denied symptoms. pt ambulated well with walker. gait stable. sat in chair after for an hour. started clear liquid diet and is tolerating diet. no distended noted to abdomen, denies nausea and vomiting. c/o "need to burp but cant" feeling. gave reglan with good effect. per Dr. Moya order, 1 L of LR given over two hours. hr decreased to 90's, bp stable and UOP since fluid bolus given =200ml out. new order to give another 500ml LR and continue with current hourly rate. daughter at bedside. pt has good family support. patient is in good spirits today. denies pain from surgical incision. left cvc (one lumen) clotted and received order for cathflo from Dr. Moya. am and 1500 lab results called to Dr. Moya and Dr. Kaiser. replacing electrolytes as needed. order received. will recheck am labs.
[2018-08-09] MEDS ORDERED: AMIODARONE HCL 900 MG in DEXTROSE 5 % 500ML BOTTLE 482 ML IV SCH (16:30)
[2018-08-09] MEDS ORDERED: AMIODARONE HCL 150 MG/100 ML BAG IV ONE (16:30)
[2018-08-09] MEDS ORDERED: ALTEPLASE RECOMBINANT 2 MG/2 ML VIAL IV PRN (16:30)
[2018-08-09] MEDS ORDERED: MAGNESIUM SULFATE 2GM/50ML 50 ML IV ONE ×3 (16:30→21:32)
[2018-08-09] MEDS ORDERED: LACTATED RINGER'S 500 ML IV ONE ×2 (17:00→18:00)
[2018-08-09] MEDS: CHLORASEPTIC SPRAY 177 ML BTL MM PRN (20:00)
[2018-08-10] VITALS (17 sets, daily range): BP systolic 96–138; BP diastolic 55–92
--- NOTE | 2018-08-10 00:49 | Progress Note ---
DATE: August 09, 2018 CARDIOLOGY PROGRESS NOTE SUBJECTIVE: Status post surgery. On telemetry, atrial flutter and some atrial fibrillation strips with episode of rapid ventricular response. Denies any chest pain or shortness of breath. OBJECTIVE VITAL SIGNS: Temperature 97.5, heart rate 136, blood pressure 110/55, respiratory rate 28, and O2 sat in the low 90s. GENERAL: No acute distress, alert. NECK: No JVD. CHEST: Decreased breath sounds in bilateral bases. CARDIOVASCULAR: Regular rate and rhythm. Normal S1 and S2. Systolic ejection murmur 2/6. No S3, no S4. ABDOMEN: Distended. Diverting colostomy in place and dressing is in place. EXTREMITIES: No edema. Warm distal extremities. CARDIOVASCULAR MEDICATIONS 1. Amiodarone drip per protocol. 2. Metoprolol tartrate 2.5 mg every 12 hours to be up-titrated as tolerated by blood pressure for rate control. STUDIES: Sodium 135, potassium 4.1, chloride 109, bicarbonate 13, BUN 11, and creatinine 1.23. White blood cells 13, hemoglobin 10.9, and platelets 226,000. INR 0.9. PT 13.4, PTT 38.2. AST 10, ALT 8, total bilirubin 0.5, and alkaline phosphatase 47. ASSESSMENT 1. Remains n.p.o. status post exploratory laparotomy with peritoneal spill reported, status post diverting colostomy. 2. Paroxysmal atrial fibrillation/atrial flutter. 3. Metabolic acidosis. 4. Anemia. 5. History of aortic valve replacement. 6. History of coronary artery disease with previous multiple coronary stents to left anterior descending, circumflex, and right coronary artery, each more than 1 year prior. RECOMMENDATIONS 1. Continue current cardiovascular medications. 2. Consider switching fluids to half NS given the metabolic acidosis. 3. Once advancing p.o. diet, we will resume aspirin. 4. Overall guarded prognosis. Job#: [id number]
[2018-08-10] MEDS: LACTATED RINGER'S 1,000 ML IV SCH ×2 (03:30→19:00)
[2018-08-10] MEDS: CHLORASEPTIC SPRAY 177 ML BTL MM PRN (04:30)
[2018-08-10 04:49] LABS: BASOPHILS % 0.2 % (0.0-1.0); EOSINOPHILS # (AUTO) 0.1 (0.0-0.4); HEMATOCRIT 31.2 % (38.2-49.6); HEMOGLOBIN 10.4 g/dL (14.0-18.0); LYMPHOCYTES # (AUTO) 0.8 (1.0-3.2); LYMPHOCYTES % 6.5 % (18.0-39.1); MEAN CORPUSCULAR HEMOGLOBIN 27.5 pg (28-32); MEAN CORPUSCULAR HGB CONC 33.3 g/dL (31-35); MEAN CORPUSCULAR VOLUME 82.5 fL (81-99); MONOCYTES # (AUTO) 0.6 (0.2-0.8); MONOCYTES % 4.4 % (4.4-11.3); NEUTROPHILS % 87.2 % (38.7-80.0); PLATELET COUNT 230 x10e3/uL (140-360); RED BLOOD COUNT 3.78 x10e6/uL (4.3-5.7); RED CELL DISTRIBUTION WIDTH 15.8 % (11.7-14.4)
[2018-08-10 05:01] LABS: INR 1.27
[2018-08-10 05:02] LABS: PARTIAL THROMBOPLASTIN TIME 47.3 seconds (23.8-35.5)
[2018-08-10] MEDS: METRONIDAZOLE 500MG/NS 100ML 100 ML IV SCH ×3 (05:05→22:55)
[2018-08-10 05:11] LABS: ANION GAP 13.4 mmol/L (8-16); BLOOD UREA NITROGEN 8 mg/dL (7-26); BUN/CREATININE RATIO 8 (6-25); CALCIUM 8.2 mg/dL (8.4-10.2); CARBON DIOXIDE 17 mmol/L (22-29); CHLORIDE 105 mmol/L (98-107); CREATININE, SERUM 0.95 mg/dL (0.72-1.25); EST GLOMERULAR FILTRATION RATE > 60 ML/MIN (60-); GLUCOSE 141 mg/dL (74-118); POTASSIUM 3.4 mmol/L (3.5-5.1); SODIUM 132 mmol/L (136-145)
[2018-08-10 05:43] LABS: MAGNESIUM 1.9 MG/DL (1.3-2.1)
[2018-08-10 06:04] LABS: THYROID STIMULATING HORMONE 4.444 uIU/mL (0.350-4.940)
[2018-08-10] MEDS: IPRATROPIUM BROMIDE 0.02% 2.5 ML NEB NEB SCH ×3 (07:25→20:30)
[2018-08-10] MEDS: INSULIN LISPRO 100 UNIT/1 ML 3ML VIAL SQ SCH ×4 (07:30→21:00)
[2018-08-10] MEDS ORDERED: POTASSIUM CHLORIDE 20MEQ/100ML 300 ML IV ONE (08:00)
[2018-08-10] MEDS: METOPROLOL TARTRATE INJ 1 MG/ML VIAL IV SCH ×2 (09:00→21:00)
[2018-08-10] MEDS: HYDROMORPHONE 2MG/ML 2 MG/ML ML IV PRN ×2 (09:07→14:29)
[2018-08-10] MEDS: FAMOTIDINE 20 MG/2 ML VIAL IV SCH ×2 (09:40→17:30)
[2018-08-10] MEDS: METOCLOPRAMIDE HCL 10 MG/2ML VIAL IV PRN (09:43)
[2018-08-10] MEDS: ONDANSETRON HCL INJ 2 MG/ML VIAL IV PRN ×2 (09:43→23:55)
[2018-08-10] MEDS: LEVOFLOXACIN 500MG/D5W 100ML 100 ML IV SCH (12:00)
[2018-08-10] MEDS: IRON SUCROSE 100 MG in SODIUM CHLORIDE 0.9% 100 ML 100 ML IV SCH (13:31)
--- NOTE | 2018-08-10 14:26 | NUR ---
verified orders with Dr. Moya, continue telemetry monitoring for patient.
--- NOTE | 2018-08-10 15:56 | NUR ---
patient oob to chair twice today. patient also ambulated from his room to IMU/OBS nursing station. used walker for ambulation. pt tolerated ambulation well. only reported fatigue after ambulation. hr 90's today .
--- NOTE | 2018-08-10 18:22 | NUR ---
notified Dr. Moya of [facility] for today. pt stable and in good spirits. no distress at this time. Plan is to monitor strict I&O's
--- NOTE | 2018-08-10 19:30 | NUR ---
Received patient calm in bed, hemodynamically stable on lactated ringers at 100mls/hr. Awaiting transfer out of the unit
--- NOTE | 2018-08-10 21:30 | NUR ---
Report called in to [facility], patient transferred to room 202, vitals stable, patient informed daughter of the transfer
--- NOTE | 2018-08-10 21:40 | NUR ---
PATIENT RECEIVED FROM ICU. PATIENT IS RESTING IN BED, AAOX2. RESP EVEN AND UNLABORED. MID ABDOMINAL DRESSING NOTED, DRY AND INTACT. TELE IN PLACE. IV FLUID INFUSING. CALL LIGHT WITHIN REACH. INSTRUCT TO CALL FOR ASSISTANCE. BED LOW/LOCKED. CONTINUE TO MONITOR CLOSELY
[2018-08-10] MEDS: MORPHINE SULFATE INJ 4 MG/ML INJ IV PRN (23:55)
[2018-08-11] VITALS (8 sets, daily range): BP systolic 100–173; BP diastolic 59–83
[2018-08-11] MEDS: ONDANSETRON HCL INJ 2 MG/ML VIAL IV PRN ×4 (04:30→21:48)
[2018-08-11 04:51] LABS: BASOPHILS # (AUTO) 0.1 (0.0-0.1); BASOPHILS % 0.4 % (0.0-1.0); EOSINOPHILS # (AUTO) 0.2 (0.0-0.4); HEMATOCRIT 31.6 % (38.2-49.6); HEMOGLOBIN 10.6 g/dL (14.0-18.0); LYMPHOCYTES # (AUTO) 0.7 (1.0-3.2); LYMPHOCYTES % 5.5 % (18.0-39.1); MEAN CORPUSCULAR HGB CONC 33.5 g/dL (31-35); MEAN CORPUSCULAR VOLUME 83.4 fL (81-99); MONOCYTES # (AUTO) 0.6 (0.2-0.8); MONOCYTES % 5.1 % (4.4-11.3); NEUTROPHILS # (AUTO) 10.6 (2.1-6.9); NEUTROPHILS % 86.4 % (38.7-80.0); PLATELET COUNT 269 x10e3/uL (140-360); RED BLOOD COUNT 3.79 x10e6/uL (4.3-5.7); RED CELL DISTRIBUTION WIDTH 16.5 % (11.7-14.4)
[2018-08-11 05:15] LABS: ANION GAP 15.2 mmol/L (8-16); BLOOD UREA NITROGEN 8 mg/dL (7-26); BUN/CREATININE RATIO 9 (6-25); CALCIUM 8.3 mg/dL (8.4-10.2); CARBON DIOXIDE 15 mmol/L (22-29); CHLORIDE 105 mmol/L (98-107); CREATININE, SERUM 0.91 mg/dL (0.72-1.25); EST GLOMERULAR FILTRATION RATE > 60 ML/MIN (60-); GLUCOSE 136 mg/dL (74-118); MAGNESIUM 1.5 MG/DL (1.3-2.1); POTASSIUM 4.2 mmol/L (3.5-5.1); SODIUM 131 mmol/L (136-145)
--- NOTE | 2018-08-11 05:40 | Diagnostic Imaging Report ---
CHEST SINGLE (PORTABLE), 08/11/2018 5:29 AM Technique: CHEST SINGLE (PORTABLE) Comparison: 08/09/2018 Clinical history: Pulmonary edema Findings: See Impression Impression: 1. Lines/Tubes: Median sternotomy and aortic valve and left central venous catheter over the mid brachiocephalic vein. 2. Stable enlarged cardiomediastinal silhouette. 3. Low lung volumes with mild bibasilar interstitial opacities which may reflect atelectasis/edema. 4. No significant effusion or pneumothorax. Left lateral skin fold. Signed by: Dr Chyna Delgado MD on 08/11/2018 5:37 AM
--- NOTE | 2018-08-11 05:41 | Diagnostic Imaging Report ---
ABDOMEN-1VIEW (KUB) Clinical history: Postoperative ileus Technique: AP view abdomen Comparison: 08/09/2018 Findings: Abdomen: Hemidiaphragms are excluded. Persistent mildly dilated gas-filled loops of small and large bowel. Contrast is seen in the right colon. Right lower quadrant ostomy. Overlying skin sarah. Other: Degenerative changes are noted. Impression: Persistent ileus. Signed by: Dr Chyna Delgado MD on 08/11/2018 5:37 AM
[2018-08-11] MEDS: LACTATED RINGER'S 1,000 ML IV SCH ×2 (05:54→09:45)
[2018-08-11] MEDS: METRONIDAZOLE 500MG/NS 100ML 100 ML IV SCH (05:54)
[2018-08-11] MEDS: IPRATROPIUM BROMIDE 0.02% 2.5 ML NEB NEB SCH ×3 (07:00→23:20)
[2018-08-11] MEDS: INSULIN LISPRO 100 UNIT/1 ML 3ML VIAL SQ SCH ×4 (07:30→21:00)
--- NOTE | 2018-08-11 09:06 | NUR ---
CM SPOKE TO DR. DELEON REGARDING PATIENT PLAN OF CARE. PER MD PATIENT WITH POST- OP ILEUS AND UNABLE TO CONSUME FOOD AND LIQUIDS AT THIS TIME. PATIENT ATTEMPTED TO ADVANCE DIET BUT WAS UNABLE TO TOLERATE. PATIENT BACK TO NPO DIET. PATIENT FAMILY REQUESTED PATIENT BE ABLE TO EAT PRIOR TO DISCHARGE HOME WITH HOME HOSPICE.
--- NOTE | 2018-08-11 09:42 | Progress Note ---
DATE: August 10, 2018 CARDIOLOGY PROGRESS NOTE SUBJECTIVE: Abdominal distention. Denies chest pain or shortness of breath. OBJECTIVE VITALS: Temperature 98.4, heart rate 107, blood pressure 109/61, respiratory rate 20, and O2 sat 95% on telemetry and atrial fibrillation with controlled ventricular response. GENERAL: In no acute distress. Alert. NECK: No JVD. CHEST: Clear to auscultation. CARDIOVASCULAR: Irregular rate and rhythm. Normal S1 and S2. Systolic ejection murmur. ABDOMEN: Distended. Colostomy in place. EXTREMITIES: No edema. Warm distal extremities. CARDIOVASCULAR MEDICATIONS: Reviewed. 1. Amiodarone IV drip. 2. Metoprolol tartrate 2.5 mg every 12 hours. 3. Iron sucrose. STUDIES: Reviewed. Potassium 3.4, 17, creatinine 0.95, sodium 132, chloride 105, BUN 8, glucose 141. White blood cells 12.6, hemoglobin 10.4 and platelets 230,000. INR 1.2. ASSESSMENT 1. Status post colostomy in the setting of metastatic cancer with colon mass and presented with bowel obstruction. 2. Status post MESERET. 3. Coronary artery disease with history of prior coronary stents. 4. Atrial fibrillation/flutter. RECOMMENDATIONS 1. Continue current cardiovascular medications. 2. Currently, not a candidate for anticoagulation at this point given recent surgery. 3. Remains n.p.o. with some distention. Repeat lytes. Monitor progression. Guarded overall prognosis. Job#: [id number] CANDELARIO
[2018-08-11] MEDS: FAMOTIDINE 20 MG/2 ML VIAL IV SCH ×2 (09:57→17:00)
[2018-08-11] MEDS: METOPROLOL TARTRATE INJ 1 MG/ML VIAL IV SCH ×2 (10:00→21:48)
[2018-08-11] MEDS: LEVOFLOXACIN 500MG/D5W 100ML 100 ML IV SCH (10:32)
[2018-08-11] MEDS: HYDROMORPHONE 2MG/ML 2 MG/ML ML IV PRN ×3 (11:20→21:48)
[2018-08-11] MEDS ORDERED: MAGNESIUM SULFATE 2GM/50ML 50 ML IV ONE (13:00)
[2018-08-11] MEDS ORDERED: MORPHINE SULFATE INJ 4 MG/ML INJ IV PRN (13:00)
--- NOTE | 2018-08-11 17:53 | Progress Note ---
DATE: August 11, 2018 CARDIOLOGY PROGRESS NOTE SUBJECTIVE: No complaints. OBJECTIVE VITALS: Temperature of 96.9, heart rate 93, blood pressure 153/76, respiratory rate 18, O2 sat 92%. GENERAL: In no acute distress. Alert. NECK: No JVD. CHEST: Clear to auscultation. CARDIOVASCULAR: Regular rate and rhythm. ABDOMEN: Distended with colostomy in place. EXTREMITIES: Trace edema. CARDIOVASCULAR MEDICATIONS: Reviewed. Metoprolol tartrate 2.5 mg every 12 hours. STUDIES: Reviewed. Creatinine is 0.9. Hemoglobin 10.6, white blood cells 12.2. INR 1.2. Platelets 269,000. ASSESSMENT 1. Colonic mass with bowel obstruction: Now status post partial colectomy and colostomy. 2. Aortic valve replacement. 3. Coronary artery disease with history of stents. 4. Hypertension. 5. Atrial fibrillation/flutter. RECOMMENDATIONS: Continue current cardiovascular medications. Diet is advanced. Can consider transitioning to oral beta becca and adding anticoagulation/antiplatelets. Overall, guarded prognosis. Job#: [id number] ME
[2018-08-11] MEDS: D5.45%NS/KCL 20MEQ 1,000 ML IV SCH (22:45)
[2018-08-12] VITALS (8 sets, daily range): BP systolic 119–195; BP diastolic 65–93
[2018-08-12] MEDS: HYDROMORPHONE 2MG/ML 2 MG/ML ML IV PRN ×4 (04:10→22:08)
[2018-08-12] MEDS: ONDANSETRON HCL INJ 2 MG/ML VIAL IV PRN ×2 (04:10→22:08)
--- NOTE | 2018-08-12 06:16 | Diagnostic Imaging Report ---
ABDOMEN-1VIEW (KUB) Clinical history: Ileus Technique: AP view abdomen Comparison: Previous day Findings: Overlying skin sarah. Mild gaseous distention of bowel is again noted. Contrast in the right colon. Right lower quadrant ostomy. Hemidiaphragms are excluded. Impression: Persistent ileus. Signed by: Dr Chyna Delgado MD on 08/12/2018 6:13 AM
[2018-08-12] MEDS: IPRATROPIUM BROMIDE 0.02% 2.5 ML NEB NEB SCH ×3 (06:41→19:55)
--- NOTE | 2018-08-12 07:00 | NUR ---
RCD PT AT BED PT IS ALERT AND ORIENTED PT RESTING ON BED NO SIGNS OF ANY DISTRESS NOTED PT NPO IV PATENT MERINO DRAINING BY GRAVITY FAMILY AT BED SIDE BED LOW AND LOCKED CALL LIGHT IN REACH
[2018-08-12] MEDS: INSULIN LISPRO 100 UNIT/1 ML 3ML VIAL SQ SCH ×4 (07:30→21:00)
[2018-08-12] MEDS: D5.45%NS/KCL 20MEQ 1,000 ML IV SCH ×2 (08:45→16:30)
[2018-08-12] MEDS: METOCLOPRAMIDE HCL 10 MG/2ML VIAL IV PRN (08:49)
[2018-08-12] MEDS: FAMOTIDINE 20 MG/2 ML VIAL IV SCH ×2 (08:49→16:43)
[2018-08-12] MEDS: METOPROLOL TARTRATE INJ 1 MG/ML VIAL IV SCH ×2 (08:49→22:07)
--- NOTE | 2018-08-12 11:31 | Progress Note ---
DATE: August 12, 2018 CARDIOLOGY PROGRESS NOTE SUBJECTIVE: Out of bed to wheelchair in the halls with family today. No complaints. Still n.p.o. OBJECTIVE VITALS: Temperature 96.7, heart rate 97, blood pressure 125/76, respiratory rate 20, O2 sat 97%. GENERAL: No acute distress. Alert. NECK: No JVD. CHEST: Clear to auscultation. CARDIOVASCULAR: Regular rate and rhythm. Normal S1 and S2. Systolic ejection murmur. ABDOMEN: Distended. Decreased breath sounds. Ostomy in place. EXTREMITIES: No edema. Warm distal extremities. CARDIOVASCULAR MEDICATIONS: Reviewed. Metoprolol tartrate 2.5 mg IV every 12 hours. STUDIES: Reviewed. Creatinine is 0.9. Hemoglobin 10.6. Platelets 269. INR 1.2. ASSESSMENT 1. Bowel obstruction in the setting of a colon metastases, now status post exploratory laparoscopy and colostomy. 2. History of aortic valve replacement. 3. History of remote coronary stents. 4. Anemia. 5. Remains n.p.o. post surgery. RECOMMENDATIONS: Continue IV beta becca and await advancement of p.o. diet. Job#: [id number]
--- NOTE | 2018-08-12 18:46 | NUR ---
PT RESTING ON BED BED SIDE REPORT GIVEN TO INCOMING NURSE
[2018-08-13 02:20] VITALS: BP 143/92
[2018-08-13 04:40] VITALS: BP 145/82
[2018-08-13] MEDS: IPRATROPIUM BROMIDE 0.02% 2.5 ML NEB NEB SCH (07:00)
--- NOTE | 2018-08-13 07:05 | NUR ---
pt passing gas in ileostomy bag and small amount of greenish brown stool noted in bag
[2018-08-13] MEDS: INSULIN LISPRO 100 UNIT/1 ML 3ML VIAL SQ SCH (07:30)
[2018-08-13] MEDS: HYDROMORPHONE 2MG/ML 2 MG/ML ML IV PRN (07:43)
[2018-08-13] MEDS: ONDANSETRON HCL INJ 2 MG/ML VIAL IV PRN (07:44)
[2018-08-13 08:07] VITALS: BP_SYST 131; BP_SYST 145; BP_DIAS 82; BP_DIAS 84
[2018-08-13] MEDS: FAMOTIDINE 20 MG/2 ML VIAL IV SCH (08:56)
[2018-08-13] MEDS: METOPROLOL TARTRATE INJ 1 MG/ML VIAL IV SCH (08:56)
[2018-08-13] MEDS: D5.45%NS/KCL 20MEQ 1,000 ML IV SCH (09:06)
--- NOTE | 2018-08-13 10:00 | NUR ---
DC LEFT SUBCLAVIAN BY ORDER NO BLEEDING NOTED
--- NOTE | 2018-08-13 10:24 | NUR ---
PATIENT WENT TO HOME HOSPICE IN SAFE CONDITION ([facility]) NO SIGNS OF ANY BLEEDING ON IV SITE
--- NOTE | 2018-08-13 10:30 | NUR ---
pt went to hospice in safe condition
--- NOTE | 2018-08-13 13:11 | Discharge Summary ---
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 SECONDARY DIAGNOSES 1. Atrial flutter. 2. Acute blood loss anemia. 3. Iron deficiency anemia. 4. Coronary artery disease. 5. Previous aortic valve replacement. 6. Hyponatremia. 7. Metabolic acidosis. 8. Acute renal failure. CONSULTANTS 1. Dr. Montoya, general surgery. 2. Dr. Kaiser, cardiology. PROCEDURES/STUDIES PERFORMED 1. Loop ileostomy. 2. CT of the abdomen and pelvis. HISTORY: Per H and P. HOSPITAL COURSE: The patient was admitted with small bowel obstruction due to "fecal mass". Patient was evaluated by cardiology for preop assessment. The plan initially was to do right colectomy; however, during surgery it was discovered that he already has diffuse carcinomatosis; therefore, instead a loop ileostomy was done. Postop it was complicated by A-flutter/AFib with RVR. Patient received amiodarone drip for 24 hours. Patient also had postop ileus finally this is resolving. Patient also got intravenous iron for his iron deficiency anemia. He also got 2 units of packed red blood cell transfusion at this time. Patient's family would like him to go home on hospice. Patient was seen and examined today. It took 32 minutes total to discharge this patient. CONDITION ON DISCHARGE: Hospice. DISCHARGE MEDICATIONS: Comfort pack per hospice. HANS DELEON M.D. Job#: [id number] SUDARSHAN
== END 2018-08-13 10:30 | disposition hospice, home (50) | DRG 330 ==
LOC: ER 15:58 → ERHOLD 23:38 → MED/SURG 08-06 01:21 → ICU 08-08 11:05 → MED/SURG2 08-10 21:33
PROVIDERS: ADMIT Internal Medicine; ATTEND Internal Medicine
PROC: 02HV33Z Insertion of Infusion Device into Superior Vena Cava, Percutaneous Approach (ICD-10-PCS; 2018-08-08)
PROC: 30243N1 Transfusion of Nonautologous Red Blood Cells into Central Vein, Percutaneous Approach (ICD-10-PCS; 2018-08-08)
PROC: 0D1B4Z4 Bypass Ileum to Cutaneous, Percutaneous Endoscopic Approach (ICD-10-PCS; principal; 2018-08-08 11:00)
DX: C18.0 Malignant neoplasm of cecum (principal); N17.9 Acute kidney failure, unspecified; E87.1 Hypo-osmolality and hyponatremia; E87.2 Acidosis; I48.92 Unspecified atrial flutter; D62 Acute posthemorrhagic anemia; C78.6 Secondary malignant neoplasm of retroperitoneum and peritoneum; R18.0 Malignant ascites; K91.89 Other postprocedural complications and disorders of digestive system; K56.7 Ileus, unspecified; E44.0 Moderate protein-calorie malnutrition; I25.10 Atherosclerotic heart disease of native coronary artery without angina pectoris; Z95.1 Presence of aortocoronary bypass graft; Z79.01 Long term (current) use of anticoagulants; Z95.2 Presence of prosthetic heart valve; D50.9 Iron deficiency anemia, unspecified; I48.0 Paroxysmal atrial fibrillation; Z68.27 Body mass index [BMI] 27.0-27.9, adult; Z95.5 Presence of coronary angioplasty implant and graft; E11.9 Type 2 diabetes mellitus without complications; N40.0 Benign prostatic hyperplasia without lower urinary tract symptoms; E78.5 Hyperlipidemia, unspecified; Z79.4 Long term (current) use of insulin
CPT/HCPCS: 36415; 71045; 74018; 74177; 80048; 80053; 81001; 82550; 82553; 82948; 83540; 83735; 84443; 84466; 84484; 85025; 85610; 85730; 86850; 86900; 86920; 93005; 93306; 94640; 96360; 96372; 99284; J0360; J0694; J1100; J1644; J1756; J1956; J2001; J2270; J2405; J2543; J2765; J2997; J3475; J3480; J7030; J7120; J7799; P9016; Q9967